=== PATIENT | male | born 1995 | race Caucasian/White ===

== ENCOUNTER 2024-10-16 19:45 | Emergency (ER) | payer MEDICAID ==
[2024-10-16] MEDS: Iopamidol 612 MG/ML 100 ML Bottle IVPUSH ONE (20:04)
[2024-10-16] MEDS: fentaNYL 100 MCG/2 ML SDV IVPUSH ONE (20:14)
[2024-10-16] MEDS: Sodium Chloride 0.9% 1,000 ML IV ONE (20:14)
[2024-10-16] MEDS: Ondansetron 4 MG/2 ML SDV IVPUSH ONE (20:14)
[2024-10-16 20:19] LABS: HEMATOCRIT 49.4 % (40.0-54.0); HEMOGLOBIN 16.4 g/dL (14.0-18.0); MEAN CORPUSCULAR HEMOGLOBIN 31.1 pg (27.0-34.0); MEAN CORPUSCULAR HGB CONC 33.2 g/dL (33.0-35.0); MEAN CORPUSCULAR VOLUME 93.6 fL (80-100); PLATELET COUNT,PLT 247 10^3/uL (150-450); RED BLOOD CELL COUNT 5.28 10^6/uL (4.6-6.2); WHITE BLOOD CELL COUNT,WBC 22.1 10^3/uL (5.0-10.0)
[2024-10-16 20:23] LABS: BASOPHILS PERCENT AUTO 0.3 % (0.0-1.0); LYMPHOCYTES PERCENT AUTO 7.3 % (20.5-50.1); MONOCYTES PERCENT AUTO 5.9 % (2-8); NEUTROPHILS PERCENT AUTO 85.5 % (42.2-75.2)
[2024-10-16 20:27] LABS: APPEARANCE,URINE CLEAR (CLEAR); BILIRUBIN,URINE NEGATIVE (NEGATIVE); COLOR,URINE YELLOW (YELLOW); GLUCOSE,URINE NEGATIVE (NEGATIVE); KETONES,URINE NEGATIVE (NEGATIVE); LEUKOCYTE ESTERASE,URINE NEGATIVE (NEGATIVE); NITRITE,URINE NEGATIVE (NEGATIVE); OCCULT BLOOD,URINE NEGATIVE (NEGATIVE); PROTEIN,URINE NEGATIVE (NEGATIVE); UROBILINOGEN,URINE 0.2 mg/dL (0.2-1.0)
[2024-10-16 20:33] LABS: BENZODIAZEPINE,URINE NEGATIVE (NEGATIVE); MDMA (ECSTASY), URINE NEGATIVE (NEGATIVE); METHADONE,URINE NEGATIVE (NEGATIVE); METHAMPHETAMINES,URINE POSITIVE (NEGATIVE); OPIATES,URINE NEGATIVE (NEGATIVE)
[2024-10-16 20:34] LABS: AMPHETAMINES,URINE POSITIVE (NEGATIVE); BARBITURATES,URINE NEGATIVE (NEGATIVE); OXYCODONE,URINE NEGATIVE (NEGATIVE); PHENCYCLIDINE,URINE NEGATIVE (NEGATIVE); TCA,URINE NEGATIVE (NEGATIVE)
[2024-10-16 20:38] LABS: BAND PERCENT MAN 4 %; EOSINOPHILS PERCENT MAN 1 % (1-3); LYMPHOCYTES PERCENT MAN 8 % (20-50); MONOCYTES PERCENT MAN 10 % (2-8); SEG NEUTROPHILS PERCENT MAN 77 % (42-75)
[2024-10-16 20:48] LABS: A/G RATIO 1.1; ALBUMIN 4.1 g/dL (3.4-5.0); ANION GAP 15.2 mEq/L (7-13); BILIRUBIN TOTAL 0.3 mg/dL (0.2-1.0); BUN/CREATININE RATIO 9.6 (No establ ref range); CREATININE 1.04 mg/dL (0.70-1.30); EST CRCL DRUG DOSING (CG) 104.48 mL/min; POTASSIUM,K 4.2 mmol/L (3.5-5.1); PROTEIN TOTAL,TP 7.8 g/dL (6.4-8.2)
[2024-10-16 20:49] LABS: LACTIC ACID 2.3 mmol/L (0.4-2.0)
== END 2024-10-16 22:33 | disposition home or self-care (01) ==
LOC: DL.ED 19:45
DX: S30.0XXA Contusion of lower back and pelvis, initial encounter (principal); F10.120 Alcohol abuse with intoxication, uncomplicated; Y04.8XXA Assault by other bodily force, initial encounter; Y93.89 Activity, other specified; Y90.5 Blood alcohol level of 100-119 mg/100 ml
CPT/HCPCS: 36415; 70450; 70486; 72125; 74177; 80053; 80305; 80307; 81003; 82550; 83605; 83690; 84484; 85025; 96361; 96374; 96375; 99284; J2405; J3010; J7030; Q9967; 99283